=== PATIENT | female | born 1940 | race Caucasian/White ===

== ENCOUNTER 2017-01-11 09:16 | Day surgery (SDC) | payer MEDICARE, OTHER ==
[~2017-01-11] VITALS: Ht 162.6 cm; Wt 89.8 kg
--- NOTE | ~2017-01-11 | EGD ---
EGD REPORT [facility] [address] [address] NAME: RAS BRYANT : 36 STATUS : REG [facility]#: [id number] AGE: 76 ADM/REG DATE : 01/11/17 MR#: [id number] REPORT SERV DATE: 01/11/17 DICTATED BY: HOLLIS LOPEZ DATE: 01/11/17 REPORT STATUS : Draft TRANSCRIBED BY: [facility] DATE: 01/11/17 Endoscopy Center Patient Name: Ras Bryant Date of : 1940 Attending MD: HOLLIS LOPEZ MD Procedure Date No Time: 01/11/2017 Procedure: Colonoscopy Indications: High risk colon CA surveillance: Personal history multiple (3 or more) adenomas Referring MD: MEAGAN GRIFFITHS, YOLANDA VARGAS MD, CANDACE AVILA Medicines: Propofol per Anesthesia Complications: No immediate complications. Estimated blood loss: None. Procedure: Pre-Anesthesia Assessment: - After reviewing the risks and benefits, the patient was deemed in satisfactory condition to undergo the procedure. - Prior to the procedure, a History and Physical was performed, and patient medications and allergies were reviewed. The patient's tolerance of previous anesthesia was also reviewed. The risks and benefits of the procedure and the sedation options and risks were discussed with the patient. All questions were answered, and informed consent was obtained. Prior Anticoagulants: The patient has taken no previous anticoagulant or antiplatelet agents. ASA Grade Assessment: III - A patient with severe systemic disease. After reviewing the risks and benefits, the patient was deemed in satisfactory condition to undergo the procedure. After I obtained informed consent, the scope was passed under direct vision. Throughout the procedure, the patient's blood pressure, pulse, and oxygen saturations were monitored continuously. The CF [id number] was introduced through the anus and advanced to the cecum, identified by appendiceal orifice and ileocecal valve. The colonoscopy was performed with difficulty due to unsatisfactory bowel prep, significant looping and the patient's body habitus. Successful completion of the procedure was aided by straightening and shortening the scope to obtain bowel loop reduction, applying abdominal pressure and lavage. The ileocecal valve and appendiceal orifice were photographed. The patient tolerated the procedure well. The quality of the bowel preparation was fair. The bowel preparation used was polyethylene glycol (PEG). Scope withdrawal time was nearly 8 minutes. EGD REPORT [address] [address] NAME: RAS BRYANT : [birth year] STATUS : REG [facility]#: [id number] AGE: 76 ADM/REG DATE : 01/11/17 MR#: [id number] REPORT SERV DATE: 01/11/17 DICTATED BY: HOLLIS LOPEZ DATE: 01/11/17 REPORT STATUS : Draft TRANSCRIBED BY: [employer] DATE: 01/11/17 Findings: Perianal examination was normal. Non-bleeding internal hemorrhoids were found during retroflexion and were small and Grade I (internal hemorrhoids that do not prolapse). Multiple small-mouthed diverticula were found in the sigmoid colon. The exam was otherwise without abnormality. Impression: - Non-bleeding internal hemorrhoids. - Mild diverticulosis in the sigmoid colon. - The examination was otherwise normal. Recommendation: - Discharge patient to home (ambulatory). - High fiber diet indefinitely. - Continue present medications. - Repeat colonoscopy will not be performed due to advanced age. - Return to GI clinic PRN. - Patient has a contact number available for emergencies. The signs and symptoms of potential delayed complications were discussed with the patient. Return to normal activities tomorrow. Written discharge instructions were provided to the patient. Procedure Code(s): --- Professional --- G0105, Colorectal cancer screening; colonoscopy on individual at high risk Diagnosis Code(s): --- Professional --- K64.0, First degree hemorrhoids K57.30, Diverticulosis of large intestine without perforation or abscess without bleeding Z86.010, Personal history of colonic polyps CPT copyright 2013 [employer]. All rights reserved. The codes documented in this report are preliminary and upon home energy rater review may be revised to meet current compliance requirements. Attending Participation: I personally performed the entire procedure. HOLLIS LOPEZ MD 01/11/2017 12:01 PM This report has been signed electronically. Number of Addenda: 0 EGD REPORT [facility] [address] [address] NAME: RAS BRYANT : [birth year] STATUS : REG [facility] PAT#: [id number] AGE: 76 ADM/REG DATE : 01/11/17 MR#: [id number] REPORT SERV DATE: 01/11/17 DICTATED BY: HOLLIS LOPEZ DATE: 01/11/17 REPORT STATUS : Draft TRANSCRIBED BY: [employer] DATE: 01/11/17 Note Initiated On: 01/11/2017 11:21 AM Scope Withdrawal Time 0 hours 7 minutes 50 seconds [address] [address]
[~2017-01-11 09:16] MED LIST: ACET500CAP PO; AMIT10 PO; ASPERCREME TOP; ATEN50 PO; CALTRA600D PO; D100 PO; FOLIC PO; GLUCCHONDR PO; LEVAQUIN750 MG PO; MTX2.5 PO; NATURA2 OP; NEXIUM40 PO; NORCO1 TA1 PO; PLAQ200B PO; PROLIA60 MG/1 ML SC; PROPYLTHIOUR50 MG PO; SYN.05 PO
== END 2017-01-11 23:59 | disposition home or self-care (01) ==
LOC: DMU 09:16
PROVIDERS: Internal Medicine Gastroenterology
PROC: 0DJD8ZZ Inspection of Lower Intestinal Tract, Via Natural or Artificial Opening Endoscopic (ICD-10-PCS; principal; 2017-01-11 10:45)
DX: Z12.11 Encounter for screening for malignant neoplasm of colon (principal); K64.0 First degree hemorrhoids; K57.30 Diverticulosis of large intestine without perforation or abscess without bleeding; K21.9 Gastro-esophageal reflux disease without esophagitis; E03.9 Hypothyroidism, unspecified; M06.9 Rheumatoid arthritis, unspecified; I10 Essential (primary) hypertension; G40.909 Epilepsy, unspecified, not intractable, without status epilepticus; Z86.010 Personal history of colon polyps; Z79.899 Other long term (current) drug therapy; Z98.51 Tubal ligation status; Z90.710 Acquired absence of both cervix and uterus; Z90.49 Acquired absence of other specified parts of digestive tract; Z98.890 Other specified postprocedural states
CPT/HCPCS: A9270-GY